=== PATIENT | female | born 1930 | race Caucasian/White ===

== ENCOUNTER 2018-01-12 11:12 | Emergency (ER) | payer OTHER ==
[~2018-01-12] VITALS: Ht 157.5 cm; Wt 50.3 kg
[2018-01-12 11:12] VITALS: BP 153/80
[2018-01-12] MEDS ORDERED: ACETAMINOPHEN ES 500 MG TABLET ONE (11:46)
[2018-01-12] MEDS ORDERED: LIDOCAINE /MPF 1% VIAL 5 ML VIAL ONE (11:46)
[2018-01-12] MEDS ORDERED: ACETAMINOPHEN ES 500 MG TABLET PO ONE (12:00)
--- NOTE | 2018-01-12 12:38 | NUR ---
wounds cleaned and wrapped.
== END 2018-01-12 12:51 | disposition home or self-care (01) ==
LOC: ER 11:14
DX: S01.81XA Laceration without foreign body of other part of head, initial encounter (principal); S05.41XA Penetrating wound of orbit with or without foreign body, right eye, initial encounter; S61.511A Laceration without foreign body of right wrist, initial encounter; S81.011A Laceration without foreign body, right knee, initial encounter; E03.9 Hypothyroidism, unspecified; E11.9 Type 2 diabetes mellitus without complications; E78.5 Hyperlipidemia, unspecified; I10 Essential (primary) hypertension; J44.9 Chronic obstructive pulmonary disease, unspecified; K21.9 Gastro-esophageal reflux disease without esophagitis; Z88.5 Allergy status to narcotic agent; Z88.1 Allergy status to other antibiotic agents; W01.198A Fall on same level from slipping, tripping and stumbling with subsequent striking against other object, initial encounter; Y93.89 Activity, other specified; Y92.89 Other specified places as the place of occurrence of the external cause; Y99.8 Other external cause status
CPT/HCPCS: 12013; 99284; A4606; A6402; J3490; Z7610

== ENCOUNTER 2018-01-19 10:49 | Emergency (ER) | payer OTHER ==
[~2018-01-19] VITALS: Ht 162.6 cm; Wt 50.8 kg
[2018-01-19 11:10] VITALS: BP 110/65
== END 2018-01-19 11:43 | disposition home or self-care (01) ==
LOC: ER 10:50
DX: S01.81XD Laceration without foreign body of other part of head, subsequent encounter (principal); E03.9 Hypothyroidism, unspecified; E11.9 Type 2 diabetes mellitus without complications; E78.5 Hyperlipidemia, unspecified; I10 Essential (primary) hypertension; J44.9 Chronic obstructive pulmonary disease, unspecified; K21.9 Gastro-esophageal reflux disease without esophagitis; Z88.5 Allergy status to narcotic agent; W19.XXXD Unspecified fall, subsequent encounter; Y93.89 Activity, other specified; Y92.89 Other specified places as the place of occurrence of the external cause; Y99.8 Other external cause status; Z88.6 Allergy status to analgesic agent; Z88.1 Allergy status to other antibiotic agents
CPT/HCPCS: A4606; Z7502; Z7610